=== PATIENT | female | born 1970 | race Caucasian/White ===

== ENCOUNTER 2019-03-01 18:24 | Inpatient (IN) | payer OTHER ==
[~2019-03-01] VITALS: Ht 177.8 cm; Wt 83.7 kg
--- NOTE | 2019-03-01 19:02 | NUR ---
[facility]. REPORT FROM [facility]U OLIVA AND ASSUMING CARE OF PT. DR RUEDA AT . AWAITING NEW ORDERS AT THIS TIME.
--- NOTE | 2019-03-01 19:02 | NUR ---
Provided bedside report to [facility]U Dodge. All questions answered. NADN. Dar RN to assume care of pt.
[2019-03-01] MEDS ORDERED: LORazepam 2 MG/ML, 1ML ONE (19:08)
[2019-03-01 19:15] LABS: BASOPHILS # (AUTO) 0.04 x10^3/uL (0-0.1); BASOPHILS % (AUTO) 1 % (0-1); EOSINOPHILS # (AUTO) 0.09 x10^3/uL (0-0.4); EOSINOPHILS % (AUTO) 2 % (1-7); LYMPHOCYTES # (AUTO) 1.37 x10^3/uL (1-3.4); LYMPHOCYTES % (AUTO) 24 % (22-44); MD NO; MEAN CORPUSCULAR HEMOGLOBIN 22.5 pg (27.0-34.8); MEAN CORPUSCULAR HGB CONC 31.2 g/dL (32.4-35.8); MEAN CORPUSCULAR VOLUME 72.1 fL (80-100); MEAN PLATELET VOLUME 7.6 fL (7.4-10.4); MONOCYTES # (AUTO) 0.29 x10^3/uL (0.2-0.8); MONOCYTES % (AUTO) 5 % (2-9); NEUTROPHILS # (AUTO) 3.85 x10^3/uL (1.8-6.8); NEUTROPHILS % (AUTO) 68 % (42-75); PLATELET COUNT 328 x10^3/uL (130-400); RED BLOOD COUNT 5.14 x10^6/uL (3.82-5.3); RED CELL DISTRIBUTION WIDTH 18.6 % (9.6-15.2)
[2019-03-01 19:26] LABS: ALANINE AMINOTRANSFERASE 35 U/L (12-78); ALBUMIN 3.6 g/dL (3.4-5.0); ANION GAP 11 mmol/L (5-15); CALCIUM 8.9 mg/dL (8.5-10.1); CHLORIDE 104 mmol/L (98-107)
[2019-03-01 19:30] LABS: ALKALINE PHOSPHATASE 83 U/L (45-117); BILIRUBIN,TOTAL 0.2 mg/dL (0.2-1.0); CREATININE 0.86 mg/dL (0.55-1.02); TOTAL PROTEIN 8.1 g/dL (6.4-8.2)
[2019-03-01] MEDS ORDERED: LORazepam 2 MG/ML, 1ML IVPush PRN (19:30)
[2019-03-01] MEDS ORDERED: SODIUM CHLORIDE FLUSH 10ML SYR IVF ONE (19:30)
[2019-03-01] MEDS ORDERED: LORazepam 2 MG/ML, 1ML IVPush ONE (19:30)
[2019-03-01 19:34] LABS: TROPONIN I 0.128 ng/mL (0.000-0.045)
--- NOTE | 2019-03-01 19:47 | NUR ---
MANUAL BP OBTAINED. 226/[address] RUEDA. REPORT OF PT TO [facility]U Alves
--- NOTE | 2019-03-01 19:50 | NUR ---
ASSUMED CARE FOR THIS PT.
--- NOTE | 2019-03-01 20:08 | NUR ---
PT WITH NCARDIPINE DRIP STARTED ORDERED AT 5MG/HR DRIP WILL BE TITRATED ORDERED AND AUTO BP SET TO TAKE BP EVERY 5 MIN. FRIEND AT BEDSIDE FROM [place].
[2019-03-01 20:13] LABS: INTERNATIONAL NORMALIZED RATIO 0.94 (0.93-1.1); PROTHROMBIN TIME 9.9 Seconds (9.6-11.5)
--- NOTE | 2019-03-01 20:23 | NUR ---
PT BP IMPROVED TO 179/87. DRIP REDUCED TO 3MG/HR
--- NOTE | 2019-03-01 20:49 | NUR ---
PT DRIP UNCHANGED AND AWAITING CT SCAN.
--- NOTE | 2019-03-01 21:14 | NUR ---
DRIP OFF AND AWAITING NEXT BP. CURRENT BP 164/92
--- NOTE | 2019-03-01 21:43 | NUR ---
PT RESTING WITH OTOOLE NOW A 2/10 AND NO REPORTED DIZZYNESS.
--- NOTE | 2019-03-01 22:18 | NUR ---
PT AWAITING TELE FLOOR ADMIT BP REMAINS IMPROVED AT 172/91
--- NOTE | 2019-03-01 22:57 | NUR ---
ADMIT MD TO BEDSIDE AWAITING TELE ROOM AND ADMIT ORDERS.
--- NOTE | 2019-03-01 23:09 | NUR ---
REPORT CALLED TO FLOOR PT READY TO GO.
[2019-03-01 23:25] VITALS: BP 175/112
[2019-03-01] MEDS ORDERED: LISINOPRIL 10 MG TABLET PO SCH (23:30)
[2019-03-02 00:34] VITALS: BP 178/116
[2019-03-02] MEDS ORDERED: LORazepam 1MG TABLET PO PRN (01:00)
[2019-03-02] MEDS ORDERED: LABETALOL 5MG/ML, 20ML IVPush PRN (01:00)
[2019-03-02] MEDS ORDERED: DOCUSATE 100 MG CAPSULE PO PRN (01:00)
[2019-03-02] MEDS ORDERED: LISINOPRIL 10 MG TABLET PO ONE (01:00)
[2019-03-02] MEDS ORDERED: POTASSIUM CHLORIDE 20 MEQ TAB.ER.PRT PO ONE (01:00)
[2019-03-02] MEDS ORDERED: ACETAMINOPHEN 325 MG TABLET PO PRN (01:00)
[2019-03-02] MEDS ORDERED: BUTALB/APAP/CAFFEINE 50MG/325MG/40MG PO PRN (01:00)
[2019-03-02 02:02] LABS: TROPONIN I 0.125 ng/mL (0.000-0.045)
[2019-03-02 02:37] VITALS: BP 163/103
[2019-03-02] MEDS ORDERED: MAGNESIUM SULFATE PMX 2GM/50ML 50 ML IV ONE (03:30)
[2019-03-02 04:27] VITALS: BP 152/85
[2019-03-02 07:09] VITALS: BP 160/91
[2019-03-02 07:21] LABS: TROPONIN I 0.118 ng/mL (0.000-0.045)
[2019-03-02] MEDS: LISINOPRIL 20 MG TABLET PO SCH (09:36)
[2019-03-02 11:12] LABS: ANION GAP 11 mmol/L (5-15); CALCIUM 8.7 mg/dL (8.5-10.1); CHLORIDE 100 mmol/L (98-107)
[2019-03-02 11:13] LABS: CREATININE 0.99 mg/dL (0.55-1.02)
[2019-03-02 11:52] LABS: MICROSCOPIC AUTO
[2019-03-02 11:54] LABS: CULTURE INDICATED? YES
[2019-03-02] MEDS ORDERED: POTASSIUM CHLORIDE 20 MEQ in SODIUM CHLORIDE 0.9% 250 ML IV ONE (12:30)
[2019-03-02] MEDS ORDERED: CEFTRIAXONE PMX 1GM/50ML 50 ML IV SCH (13:00)
[2019-03-02] MEDS: PHENAZOPYRIDINE 100 MG TABLET PO PRN ×2 (13:14→21:57)
[2019-03-02] MEDS ORDERED: POTASSIUM PHOSPHATE 22 MEQ in SODIUM CHLORIDE 0.9% 500 ML IV ONE (14:00)
[2019-03-02 14:49] VITALS: BP 146/81
[2019-03-02] MEDS: POTASSIUM CHLORIDE 20 MEQ TAB.ER.PRT PO SCH (18:32)
[2019-03-02 19:38] VITALS: BP 154/89
[2019-03-03 00:22] VITALS: BP 142/92
[2019-03-03 05:46] LABS: BASOPHILS # (AUTO) 0.01 x10^3/uL (0-0.1); BASOPHILS % (AUTO) 0 % (0-1); EOSINOPHILS # (AUTO) 0.08 x10^3/uL (0-0.4); EOSINOPHILS % (AUTO) 2 % (1-7); LYMPHOCYTES % (AUTO) 41 % (22-44); MD NO; MEAN CORPUSCULAR HEMOGLOBIN 22.7 pg (27.0-34.8); MEAN CORPUSCULAR HGB CONC 31.2 g/dL (32.4-35.8); MEAN CORPUSCULAR VOLUME 72.9 fL (80-100); MEAN PLATELET VOLUME 8.1 fL (7.4-10.4); MONOCYTES # (AUTO) 0.36 x10^3/uL (0.2-0.8); MONOCYTES % (AUTO) 7 % (2-9); NEUTROPHILS # (AUTO) 2.43 x10^3/uL (1.8-6.8); NEUTROPHILS % (AUTO) 50 % (42-75); PLATELET COUNT 268 x10^3/uL (130-400); RED CELL DISTRIBUTION WIDTH 18.8 % (9.6-15.2)
[2019-03-03 06:00] LABS: ANION GAP 6 mmol/L (5-15); CALCIUM 8.3 mg/dL (8.5-10.1); CHLORIDE 110 mmol/L (98-107); CREATININE 0.86 mg/dL (0.55-1.02)
[2019-03-03 09:40] VITALS: BP 164/97
[2019-03-03] MEDS: LISINOPRIL 20 MG TABLET PO SCH (09:43)
[2019-03-03] MEDS: POTASSIUM CHLORIDE 20 MEQ TAB.ER.PRT PO SCH (09:43)
[2019-03-03] MEDS ORDERED: LISI-170 PO (14:46)
[2019-03-03] MEDS ORDERED: AMLO-150 PO (14:46)
[2019-03-03] MEDS ORDERED: ACET325T14 PO (14:46)
[2019-03-03] MEDS ORDERED: AMLODIPINE 5 MG TABLET PO SCH (15:00)
[2019-03-03 15:13] VITALS: BP 156/100
== END 2019-03-03 18:24 | disposition home or self-care (01) | DRG 281 ==
LOC: ED 21:30 → EDIP 21:38 → ED 21:50 → 5SO 23:14
PROVIDERS: ADMIT Internal Medicine; ATTEND Internal Medicine
DX: I21.A1 Myocardial infarction type 2 (principal); I16.1 Hypertensive emergency; F33.9 Major depressive disorder, recurrent, unspecified; D50.9 Iron deficiency anemia, unspecified; E83.39 Other disorders of phosphorus metabolism; E83.42 Hypomagnesemia; E87.6 Hypokalemia; I08.1 Rheumatic disorders of both mitral and tricuspid valves; F17.200 Nicotine dependence, unspecified, uncomplicated; F41.0 Panic disorder [episodic paroxysmal anxiety]; G43.909 Migraine, unspecified, not intractable, without status migrainosus; I11.9 Hypertensive heart disease without heart failure; Z82.49 Family history of ischemic heart disease and other diseases of the circulatory system; Z87.440 Personal history of urinary (tract) infections; Z91.19 Patient's noncompliance with other medical treatment and regimen
CPT/HCPCS: 36415; 70450; 80048; 80053; 81001; 83735; 84100; 84484; 85025; 85610; 85730; 87086; 93005; 93306; 96365; 96375; 99291; G0378; J0696; J3480; J2060; J3475; J7040; J7050